=== PATIENT | male | born 1975 | race African-American/Black ===

== ENCOUNTER 2021-09-30 09:30 | Inpatient (IN) | payer OTHER, SELFPAY ==
[~2021-09-30] VITALS: Ht 198.1 cm; Wt 136.5 kg
[2021-09-30 09:35] VITALS: BP 225/137
--- NOTE | 2021-09-30 09:44 | NUR ---
PT AMBULATED TO BED, STEADY GAIT
--- NOTE | 2021-09-30 09:59 | NUR ---
45 Y/O M BIB SPOUSE FROM HOME, C/O PT STATES AFTER TESTING POSITIVE FOR COVID, HIS BRONCHITIS WORSNED. COUGHING INCREASED THIS WEEK, SOB, CP, WORSENED WITH LAYING DOWN AND WHEEZING. PMH: HTN, BRONCHITIS ALLERGY: NKA MED: DENIES
--- NOTE | 2021-09-30 10:44 | NUR ---
XRAY AT BEDSIDE
--- NOTE | 2021-09-30 11:05 | NUR ---
LAB AT BEDSIDE
[2021-09-30 11:22] LABS: BASOPHILS # (AUTO) 0.1 K/uL (0.00-0.22); BASOPHILS % (AUTO) 1.5 % (0.0-2.0); EOSINOPHILS # (AUTO) 0.1 K/uL (0-0.4); EOSINOPHILS % (AUTO) 2.4 % (0.0-4.0); HEMATOCRIT 39.2 % (36-52); HEMOGLOBIN 12.3 g/dL (12.0-18.0); LYMPHOCYTES # (AUTO) 1.6 K/uL (2.0-11.5); LYMPHOCYTES % (AUTO) 36.7 % (20.5-51.1); MEAN CORPUSCULAR HEMOGLOBIN 22 pg (27-31); MEAN CORPUSCULAR HGB CONC 31 g/dL (33-37); MEAN CORPUSCULAR VOLUME 69.4 fL (80-94); MONOCYTES # (AUTO) 0.4 K/uL (0.8-1.0); MONOCYTES % (AUTO) 9.3 % (1.7-9.3); NEUTROPHILS # (AUTO) 2.2 K/uL (1.8-7.7); NEUTROPHILS % (AUTO) 50.1 % (42.2-75.2); PLATELET COUNT (AUTO) 265 K/uL (140-450); RED BLOOD CELL COUNT(AUTO) 5.65 MIL/uL (4.20-6.10); RED CELL DISTRIBUTION WIDTH 20.3 % (11.6-13.7); WHITE BLOOD COUNT (AUTO) 4.4 K/uL (4.8-10.8)
[2021-09-30 11:32] LABS: ANION GAP 14.5 (8-16); CARBON DIOXIDE 25.3 mmol/L (21-32); CREATININE 1.4 mg/dL (0.6-1.3); POTASSIUM 3.8 mmol/L (3.5-5.1)
--- NOTE | 2021-09-30 12:52 | NUR ---
DR LYNN AT BEDSIDE SPEAKING WITH PATIENT
[2021-09-30] MEDS ORDERED: ASPIRIN 325 MG TAB PO ONE (13:05)
--- NOTE | 2021-09-30 13:18 | NUR ---
ULTRASOUND AT BEDSIDE
--- NOTE | 2021-09-30 13:51 | NUR ---
ESTABLISHED LEFT FOREARM IV 20G, INTACT, PATENT, GOOD BLOOD RETURN.
--- NOTE | 2021-09-30 14:04 | NUR ---
GLENNY KIDD, FOR CRITICAL LAB
--- NOTE | 2021-09-30 14:32 | NUR ---
PAGED DR WALSH ORDERS FOR HEPARIN DRIP, TOXICOLOGY SCREEN, 80 MG ATORVASTATIN.
[2021-09-30] MEDS ORDERED: HEPARIN PER PHARMACY MC PRN (14:40)
[2021-09-30 14:56] LABS: PROTHROMBIN TIME 10.4 secs (10.8-13.4)
[2021-09-30] MEDS ORDERED: hydrALAZINE 20 MG/ML VIAL IVP PRN (15:05)
[2021-09-30] MEDS ORDERED: hePARIN / DEXT 5% PREMIX 250 ML IV SCH (15:20)
[2021-09-30 15:22] LABS: BARBITURATE, URINE NEGATIVE ng/ml (NEG <=200); BENZODIAZEPINE, URINE NEGATIVE ng/mL (NEG <=200); CANNABINOID, URINE NEGATIVE ng/mL (NEG <=50); COCAINE, URINE NEGATIVE ng/mL (NEG <=300); OPIATE, URINE NEGATIVE ng/mL (NEG <=2000); PHENCYCLIDINE SCREEN,URINE NEGATIVE ng/mL (NEG <=25)
--- NOTE | 2021-09-30 15:30 | NUR ---
PT TAKEN TO CT SCAN VIA W/C
--- NOTE | 2021-09-30 15:40 | NUR ---
PT RETURNED FROM CT
--- NOTE | 2021-09-30 15:58 | NUR ---
LAB AT BEDSIDE
[2021-09-30] MEDS ORDERED: LORazepam 2 MG/ML VIAL IM/IVP PRN (16:05)
[2021-09-30] MEDS ORDERED: HYDROcodone/APAP 5/325 MG 1 TAB TAB PO PRN (16:05)
[2021-09-30] MEDS ORDERED: ZOLPIDEM 5 MG TAB PO PRN (16:05)
[2021-09-30] MEDS ORDERED: MORPHINE SULFATE 2 MG/ML SYR IVP PRN (16:05)
[2021-09-30] MEDS ORDERED: MAG SULF 2000 MG/WATER PREMIX 50 ML IV PRN (16:05)
[2021-09-30] MEDS ORDERED: SODIUM PHOS / POTASSIUM PHOS 1 PKT PDR PO PRN (16:05)
[2021-09-30] MEDS ORDERED: ONDANSETRON 4 MG/2 ML VIAL IVP PRN (16:05)
[2021-09-30] MEDS: NACL 0.9% 1,000 ML IV SCH ×2 (16:05→23:01)
[2021-09-30] MEDS ORDERED: POTASSIUM CHLORIDE 10 MEQ TABER PO PRN (16:05)
[2021-09-30] MEDS ORDERED: DOCUSATE SODIUM 100 MG GELCAP PO PRN (16:05)
[2021-09-30] MEDS ORDERED: CLONIDINE HYDROCHLORIDE 0.1 MG TAB PO SCH (16:25)
--- NOTE | 2021-09-30 16:40 | NUR ---
Patient will be admitted to care of DR KIDD. Admited to TELEMETRY. Will go to room 110 B. Belongings list completed. Report to CESAR VANESSA.
[2021-09-30 16:57] VITALS: BP 199/133
--- NOTE | 2021-09-30 16:57 | NUR ---
PT BROUGHT IN BY ARELY FROM THE ED, PT AMBULATED TO BED WITH A STEADY GAIT. PT IS ON ROOM AIR WITH CHEST RISING AND FALLING EVEN AND UNLABORED, TACHYPNEA IS NOTED. FAINT WHEEZES HEARD. PT DENIES SOB AT THE TIME. PT DENIES CHEST PAIN. PT IS ON A HEP DRIP AT 1000 UNITS ON A LEFT FOREARM 20 G. TROPONIN IS CURRENTLY PENDING. PT IS ON TELE MONITOR SHOWING ST. SKIN INTACT. VITAL SIGNS TAKEN, WITH NOTIFY POLYMERIZATION OVEN OPERATOR OF INCREASED BP. PT EDUCATION PROVIDED REGARDING HOSPITAL SETTING, PLAN OF CARE, AND SAFETY MEASURES. MRSA SWAB OBTAINED. CALL LIGHT WITHIN REACH. WILL CONTINUE TO MONITOR.
[2021-09-30] MEDS ORDERED: NITROGLYCERIN 0.4 MG TAB SL ONE (17:20)
[2021-09-30 17:25] LABS: CHOL/HDL RATIO 3.4 (1-4.5); FREE T4 (FREE THYROXINE) 1.08 ng/dL (0.76-1.46); PHOSPHORUS 3.6 mg/dL (2.5-4.9); THYROID STIMULATING HORMONE 1.91 uIU/mL (0.34-3.74)
--- NOTE | 2021-09-30 17:34 | NUR ---
OBTAINED NEW ONE TIME ORDER TORB FROM AUTOMOBILE RADIATOR MECHANIC FOR BP. WILL PLACE ORDER PER .
--- NOTE | 2021-09-30 17:43 | NUR ---
MARY MEDICATION ADMINISTERED PER MD ORDER. PT EDUCATION PROVIDED AND PT TOLERATED. PT PROVIDED WITH SANDWICH AND WATER PER REQUEST. ALL SAFETY MEASURES IN PLACE, CALL LIGHT WITHIN REACH. WILL CONTINUE TO MONITOR.
[2021-09-30 17:59] LABS: APPEARANCE,URINE CLEAR (CLEAR); BILIRUBIN,URINE NEGATIVE (NEGATIVE); BLOOD, URINE NEGATIVE (NEGATIVE); COLOR,URINE YELLOW (YELLOW); LEUKOCYTE ESTERASE ,URINE NEGATIVE (NEGATIVE); NITRITE, URINE NEGATIVE (NEGATIVE); UGLUCOSE NEGATIVE (NEGATIVE)
--- NOTE | 2021-09-30 18:21 | NUR ---
REASSESS BLOOD PRESSURE AFTER NITROGLYCERIN; 164/104
--- NOTE | 2021-09-30 18:57 | NUR ---
PTT NEEDS TO BE RETAKEN AT 2230 PER HOSPITAL POLICY. ORDER HAS BEEN PLACED.
--- NOTE | 2021-09-30 19:02 | NUR ---
PT IN STABLE CONDITION, ALL NEEDS HAD BEEN MET THROUGHOUT THE SHIFT. PT WILL BE ENDORSED [facility] SHIFT NURSE FOR CONTINUITY OF CARE.
[2021-09-30 19:46] VITALS: BP 170/109
[2021-09-30] MEDS: amLODIPine 5 MG TAB PO SCH (19:51)
--- NOTE | 2021-09-30 20:20 | NUR ---
Assumed care. A/O x 4. In no acute distress. Denies any pain. Received on a Heparin drip, but is has been discontinued by Dr. Ramirez. BP remains elevated. Amlodipine has been administered as ordered by . After disconnection from the Heparin drip he has walked to the . Will continue to monitor.
[2021-09-30 23:24] VITALS: BP 170/119
[2021-09-30] MEDS: hydrALAZINE 20 MG/ML VIAL IVP PRN (23:29)
[2021-10-01] MEDS: HYDROcodone/APAP 5/325 MG 1 TAB TAB PO PRN ×2 (00:24→05:28)
--- NOTE | 2021-10-01 00:43 | NUR ---
BP remains high at 2329 Hydralazine 10mg IV push given /2 BP = 170/119. Upon reassessment BP has improved BP = 156/107. It still needs some work done. Will check again at 4am. He did compalin of a headache of 5. [place] 5/325 has been administered. Estrella reassess in an hour. Will continue to monitor.
[2021-10-01 04:00] VITALS: BP 163/113
[2021-10-01] MEDS: hydrALAZINE 20 MG/ML VIAL IVP PRN ×2 (04:06→17:01)
--- NOTE | 2021-10-01 04:11 | NUR ---
The BP is once again elevated 163/113 with HR of 91. Hydralazine 10mg IV push has been administered. We shall reassess in an hour's time per e-mar remainder. Denies any pain at this time, and he is in no acute distress.
--- NOTE | 2021-10-01 05:33 | NUR ---
BP remains elevated. Dr. Ramirez contacted. Received new orders. Lopressor 5mg IV push x 1. Decrease IV fluids to 10ml/hr. Will continue to monitor.
[2021-10-01] MEDS: NACL 0.9% 1,000 ML IV SCH (05:45)
[2021-10-01] MEDS ORDERED: METOPROLOL 5 MG/5 ML VIAL IV ONE (06:00)
--- NOTE | 2021-10-01 07:25 | NUR ---
RECEIVED PT FROM NIGHT RN, PT IS AWAKE AND ALERT AND ORIENTED, IV LINE NOTED ON THE LFA G. 20 WITH NS INFUSING AT 10ML/HR, PT IS ON ROOM AIR, SAFETY PRECAUTION ENFORCED, PT C/O HEADACHE AND WILL BE MEDICATED, NO SIGN OF DISTRESS NOTED AND WILL CONTINUE TO MONITOR PT.
[2021-10-01 07:57] LABS: BASOPHILS % (AUTO) 0.7 % (0.0-2.0); EOSINOPHILS # (AUTO) 0.1 K/uL (0-0.4); EOSINOPHILS % (AUTO) 1.9 % (0.0-4.0); HEMATOCRIT 40.4 % (36-52); HEMOGLOBIN 12.7 g/dL (12.0-18.0); LYMPHOCYTES # (AUTO) 0.9 K/uL (2.0-11.5); LYMPHOCYTES % (AUTO) 21.5 % (20.5-51.1); MEAN CORPUSCULAR HEMOGLOBIN 22 pg (27-31); MEAN CORPUSCULAR HGB CONC 31 g/dL (33-37); MEAN CORPUSCULAR VOLUME 69.4 fL (80-94); MONOCYTES # (AUTO) 0.5 K/uL (0.8-1.0); MONOCYTES % (AUTO) 10.7 % (1.7-9.3); NEUTROPHILS # (AUTO) 2.8 K/uL (1.8-7.7); NEUTROPHILS % (AUTO) 65.2 % (42.2-75.2); PLATELET COUNT (AUTO) 295 K/uL (140-450); RED BLOOD CELL COUNT(AUTO) 5.83 MIL/uL (4.20-6.10); WHITE BLOOD COUNT (AUTO) 4.4 K/uL (4.8-10.8)
[2021-10-01 08:00] VITALS: BP 149/106
[2021-10-01 08:13] LABS: ALBUMIN 3.9 g/dL (3.4-5.0); ANION GAP 15.9 (8-16); CARBON DIOXIDE 23.6 mmol/L (21-32); CREATININE 1.1 mg/dL (0.6-1.3); MAGNESIUM 2.2 mg/dL (1.8-2.4); POTASSIUM 3.5 mmol/L (3.5-5.1); TOTAL BILIRUBIN 1.2 mg/dL (0.0-1.0)
[2021-10-01] MEDS: ATORVASTATIN 80 MG TAB PO SCH (09:04)
[2021-10-01] MEDS: amLODIPine 5 MG TAB PO SCH (09:04)
--- NOTE | 2021-10-01 09:04 | NUR ---
PT WAS GIVEN THE SCHEDULED AM MEDICATIONS NOW,TOLERATED AND WILL CONTINUE TO MONITOR PT
[2021-10-01] MEDS: ACETAMINOPHEN 325 MG TAB PO PRN ×2 (09:10→18:27)
[2021-10-01 12:00] VITALS: BP 155/102
--- NOTE | 2021-10-01 12:30 | NUR ---
PT IS HAVING HIS LUNCH NOW.
--- NOTE | 2021-10-01 15:15 | NUR ---
PT IS RESTING, ON BEDSIDE.
[2021-10-01 16:00] VITALS: BP 164/109
--- NOTE | 2021-10-01 19:15 | NUR ---
ENDORSED PT TO NIGHT RN FOR CONTINUITY OF CARE. ON BEDSIDE, PT IS NPO PENDING CT ANGIO CHEST WITH CONTRAST.
[2021-10-01 20:00] VITALS: BP 160/101
--- NOTE | 2021-10-01 21:24 | NUR ---
Assumed care. A/O x 4. He was sitting on his bed at the time. Spouse is at the bed side. He did ambulate the unit length several times. CTA pending. He did sign a consent, but it was the wrong one. We have had a new consent signed. At this time, Patricia the build technician cannot do the CTA without MD signature. Dr. Ramirez has been notified. Pt is going to go ahead and have his dinner. He will be NPO after midnight. He can also have food form home per Dr. Ramirez. Will continue to monitor.
[2021-10-02] VITALS: BP 142/94
[2021-10-02 05:01] VITALS: BP 147/99
[2021-10-02] MEDS: NACL 0.9% 1,000 ML IV SCH (05:11)
--- NOTE | 2021-10-02 06:23 | NUR ---
He remains a/o x 4. Denies pain, and in no acute distress. SBP has remained in the 140s. DBP has remained in the 90s. Much better than before. He was moved to room 111 B at the beginning of the shift. NPO, and he will be having a CTA done this AM. Arrangements for MRI shall be made today. Will endorse care to AM RN
[2021-10-02 06:37] LABS: BASOPHILS % (AUTO) 0.7 % (0.0-2.0); EOSINOPHILS # (AUTO) 0.2 K/uL (0-0.4); HEMOGLOBIN 12.5 g/dL (12.0-18.0); LYMPHOCYTES # (AUTO) 1.3 K/uL (2.0-11.5); LYMPHOCYTES % (AUTO) 29.4 % (20.5-51.1); MEAN CORPUSCULAR HEMOGLOBIN 22 pg (27-31); MEAN CORPUSCULAR HGB CONC 31 g/dL (33-37); MEAN CORPUSCULAR VOLUME 69.2 fL (80-94); MONOCYTES # (AUTO) 0.6 K/uL (0.8-1.0); MONOCYTES % (AUTO) 12.9 % (1.7-9.3); NEUTROPHILS # (AUTO) 2.2 K/uL (1.8-7.7); PLATELET COUNT (AUTO) 286 K/uL (140-450); RED BLOOD CELL COUNT(AUTO) 5.77 MIL/uL (4.20-6.10); RED CELL DISTRIBUTION WIDTH 20.2 % (11.6-13.7); WHITE BLOOD COUNT (AUTO) 4.3 K/uL (4.8-10.8)
[2021-10-02 06:44] LABS: ALBUMIN 3.6 g/dL (3.4-5.0); ANION GAP 14.1 (8-16); CARBON DIOXIDE 25.9 mmol/L (21-32); CREATININE 1.4 mg/dL (0.6-1.3); MAGNESIUM 2.4 mg/dL (1.8-2.4); TOTAL BILIRUBIN 0.8 mg/dL (0.0-1.0)
--- NOTE | 2021-10-02 07:20 | NUR ---
RECEIVED BEDSIDE REPORT FROM INSURANCE ACCOUNT REPRESENTATIVE NURSE FOR CONTINUITY OF CARE. PT IS AWAKE AND ALERT. A&OX4. ON RA WITH BREATHING UNLABORED. SR ON TELE MONITOR. AMBULATORY INDEPENDENTLY. SKIN IS WARM, DRY, AND INTACT. IV IS IN THE LEFT FOREARM 20 GAUGE RUNNING FLUIDS TKO. PT IS STABLE. PLAN OF CARE DISCUSSED.
[2021-10-02 08:00] VITALS: BP_SYST 132; BP_SYST 146; BP_DIAS 109; BP_DIAS 70
--- NOTE | 2021-10-02 08:19 | NUR ---
PATIENT HAS BEEN SCREENED AND CATEGORIZED MODERATE NUTRITION RISK. PATIENT WILL BE SEEN WITHIN 3-5 DAYS OF ADMISSION. 10/02/21 10/05/[address]
[2021-10-02] MEDS ORDERED: lisinopriL 10 MG TAB PO SCH (09:00)
[2021-10-02] MEDS: ATORVASTATIN 80 MG TAB PO SCH (09:23)
[2021-10-02] MEDS: amLODIPine 5 MG TAB PO SCH (09:24)
[2021-10-02] MEDS: CYANOCOBALAMIN 100 MCG TAB PO SCH (09:24)
--- NOTE | 2021-10-02 09:30 | NUR ---
PT FILLED OUT MRI QUESTIONNAIRE AND SIGNED PAPERWORK. CALLED CT SCAN AND THEY STATED THEY WILL ADDRESSER PT AT 1130 AM TO COMPLETE EXAM.
--- NOTE | 2021-10-02 10:35 | NUR ---
RECHECKED PT BP AND IT WAS AT 146/83. SAFETY MEASURES IN PLACE AND CALL LIGHT WITHIN REACH. PT TIANA CALLED AND ASKED FOR AN UPDATE ON VITAL SIGNS AND PROVIDED BLOOD PRESSURE REINFORCEMENT TEACHING. WILL CONTINUE TO MONITOR PT BLOOD PRESSURE. Addendum: 10/02/21 at 2316 by Jeniffer Cardoso RN WRONG TIME [id number]
--- NOTE | 2021-10-02 11:30 | NUR ---
PT WAS TAKEN TO CT SCAN VIA WHEELCHAIR. IV IS PATENT AND FLUSHING WELL. WILL WAIT FOR PT TO RETURN.
[2021-10-02 12:00] VITALS: BP 160/115
--- NOTE | 2021-10-02 12:00 | NUR ---
PT RETURNED FROM CT SCAN ANGIO CHEST. NO DISTRESS NOTED. NO ADVERSE REACTIONS NOTED. PT IS STABLE.
[2021-10-02] MEDS: hydrALAZINE 20 MG/ML VIAL IVP PRN (12:32)
--- NOTE | 2021-10-02 12:32 | NUR ---
PT'S BP IS 161/117 AND HR 91. PT WAS GIVEN HYDRALAZINE ORDERED PRN IVP. WILL REASSESS BP SHORTLY. PT DENIES CHEST PAIN OR HEADACHE. WILL CONTINUE TO MONITOR.
--- NOTE | 2021-10-02 14:30 | NUR ---
PT WAS GIVEN JUICE AND A SNACK REQUESTED. PT DENIES PAIN AT THIS TIME. NO HEADACHE OR CHEST PAIN. IV IS INTACT AND INFUSING FLUID TKO. WILL CONTINUE TO MONITOR PT.
--- NOTE | 2021-10-02 14:44 | NUR ---
DC PLANNING PATIENT HAS AN ORDER FOR MRI AND POSSIBLE CARDIAC CATH. CALLED [phone] UNABLE TO REACH CM TRANSFERRED ME TO DIFFERENT DEPT. CALLED [facility] SPOKE WITH JONATHAN AND SCHEDULED THE MRI ON 10/03/21 AT 1 PM. STILL AWAITING FOR THE AUTH. CM TO FOLLOW Addendum: 10/02/21 at 1532 by Chandrika Hollis RN DC PLANNING: CALLED [employer] SPOKE WITH GALVAN REF [id number] STATED THEY ARE NOT HANDLING THE TRANSFER THEY ARE HANDLING ONLY THE WORKERS CAMP TO SUSAN THE MAIN ACI NUMBER AND PROVIDED THE ACI NUMBER [id number]. CM TO FOLLOW Addendum: 10/02/21 at 1606 by Chandrika Hollis RN DC PLANNING: SPOKE WITH PATIENT'S TIANA PROVIDED THE INSURANCE NUMBER [phone] CALLED THE INSURANCE SPOKE WITH BRAYAN EXPLAINED THAT PT NEEDS MRI AND POSSIBLE CARDIAC CATH. SHE STATED PATIENT HAS A LIMITED COVERAGE , PT WILL GET 5-50% DISCOUNTED RATE, NO PRIOR AUTH NEEDED AND [facility] IS IN THE NET WORK. CM TO FOLLOW Addendum: 10/03/21 at 0924 by Chandrika Hollis RN DC PLANNING: [facility] WILL DIRECTOR OF CURRICULUM AND INSTRUCTION PATIENT AT 12:PM GOING TO [facility] MRI DEPT . ARRANGE TRANSPORT WAIT AND RETURN. NOTIFIED AUREA VANESSA. CM TO FOLLOW
[2021-10-02 16:00] VITALS: BP 121/78
--- NOTE | 2021-10-02 16:07 | NUR ---
ROUNDED ON PT. HE IS AWAKE, SITTING UP IN BED. NO DISTRESS NOTED. PT IS ANSWERING QUESTIONS APPROPRIATELY. PT IS STABLE.
--- NOTE | 2021-10-02 16:12 | NUR ---
SPOKE TO FUAD, PERSONAL PROPERTY APPRAISER, AND SHE STATED THAT THE PT WILL HAVE MRI TOMORROW AT 1 PM AT [facility]. TRANSPORT TO BE ARRANGED. POSSIBLE CARDIAC CATH PENDING.
--- NOTE | 2021-10-02 19:25 | NUR ---
ENDORSED PT TO MANAGER OF CASE NURSE FOR CONTINUITY OF CARE. PT IS STABLE. PLAN OF CARE DISCUSSED.
--- NOTE | 2021-10-02 19:39 | NUR ---
RECEIVED REPORT FROM AM NURSE FOR CONTINUITY OF CARE. PATIENT IS STABLE.
[2021-10-02 20:00] VITALS: BP 159/92
--- NOTE | 2021-10-02 20:25 | NUR ---
PT LAYING IN BED WATCHING MOVIES ON PHONE. PT BREATHING ON RA. A&OX4. PT SKIN INTACT. IV LOCATED ON LEFT FOREARM 20G RUNNING NS AT 10ML/HR. DENIES PAIN. PT VITAL SIGNS FOLLOW BP:159/92, HR: 88, RR:18, O2:97. WILL RECHECK PT BLOOD PRESSURE IN AN HOUR.
--- NOTE | 2021-10-02 20:30 | NUR ---
PT AMBULATED TO BATHROOM AND BACK WITH STANDBY ASSIST. PT ON 2/L NA. PT COMPLAINING SOB, O2 AT 94. INCREASED OXYGEN TO 3/L AND RAISED HOB. PT HAS A RIGHT UPPER PICC LINE RUNNING LR AT 125ML/HR. PT SKIN IS INTACT. PT VITAL SIGNS FOLLOW BP:106/66, HR: 96, RR:18, TEMP: 98, O2:97. PT COMPLAINS OF PAIN AND RATES IT 5/10. EXPLAINED PT HIS MEDICATION AND VERBALIZED UNDERSTANDING. ADMINISTERED SEROQUEL AND NORCO ORDERED. SPOKE DR. DONOVAN PROFESSOR OF FOREST PLANNING FOR REGARDING PT HEPARIN ORDER. EXPLAIN PT PLT IS 79 AND HAD A BILIARY STENT DONE TODAY. SAID TO HOLD HEPARIN AND ORDER SCD. WILL CARRY OUT ORDER. Addendum: 10/02/21 at 2309 by Jeniffer Cardoso RN WRONG CHART/PATIENT.
--- NOTE | 2021-10-02 22:35 | NUR ---
RECHECKED PT BP AND IT WAS AT 146/83. SAFETY MEASURES IN PLACE AND CALL LIGHT WITHIN REACH. PT TIANA CALLED AND ASKED FOR AN UPDATE ON VITAL SIGNS AND PROVIDED BLOOD PRESSURE REINFORCEMENT TEACHING. WILL CONTINUE TO MONITOR PT BLOOD PRESSURE.
--- NOTE | 2021-10-02 22:57 | NUR ---
PT IN BED SLEEPING. SHOWS NO SIGNS OF DISTRESS. MANN CATHETER DRAINING. CALL LIGHT WITHIN REACH AND SAFETY MEASURES IN PLACE. WILL CONTINUE TO MONITOR. Addendum: 10/02/21 at 2309 by Jeniffer Cardoso RN WRONG PT/CHART.
[2021-10-03] VITALS: BP 156/97
--- NOTE | 2021-10-03 00:41 | NUR ---
PT IN BED SLEEPING. WOKE PT FOR V/S. DENIES OF PAIN. CALL LIGHT WITHIN REACH. WILL CONTINUE TO MONITOR.
--- NOTE | 2021-10-03 02:10 | NUR ---
PT IN BED SLEEPING. SHOWS NO SIGNS OF DISTRESS. SAFETY MEASURES IN PLACE AND CALL LIGHT WITHIN REACH. WILL CONTINUE TO MONITOR.
[2021-10-03 04:00] VITALS: BP 147/91
--- NOTE | 2021-10-03 05:10 | NUR ---
PT IN BED SLEEPING. DENIES OF PAIN. SHOWS NO SIGNS OF DISTRESS. CALL LIGHT WITHIN REACH. WILL CONTINUE TO MONITOR.
[2021-10-03] MEDS: NACL 0.9% 1,000 ML IV SCH (06:28)
[2021-10-03 07:15] LABS: BASOPHILS % (AUTO) 0.6 % (0.0-2.0); EOSINOPHILS # (AUTO) 0.2 K/uL (0-0.4); EOSINOPHILS % (AUTO) 5.3 % (0.0-4.0); HEMATOCRIT 41.1 % (36-52); HEMOGLOBIN 12.9 g/dL (12.0-18.0); LYMPHOCYTES # (AUTO) 1.5 K/uL (2.0-11.5); LYMPHOCYTES % (AUTO) 37.7 % (20.5-51.1); MEAN CORPUSCULAR HEMOGLOBIN 22 pg (27-31); MEAN CORPUSCULAR HGB CONC 32 g/dL (33-37); MEAN CORPUSCULAR VOLUME 69.9 fL (80-94); MONOCYTES # (AUTO) 0.5 K/uL (0.8-1.0); MONOCYTES % (AUTO) 12.1 % (1.7-9.3); NEUTROPHILS # (AUTO) 1.8 K/uL (1.8-7.7); NEUTROPHILS % (AUTO) 44.3 % (42.2-75.2); PLATELET COUNT (AUTO) 283 K/uL (140-450); RED BLOOD CELL COUNT(AUTO) 5.88 MIL/uL (4.20-6.10); RED CELL DISTRIBUTION WIDTH 20.3 % (11.6-13.7)
[2021-10-03 07:16] LABS: ALBUMIN 3.6 g/dL (3.4-5.0); ANION GAP 14.9 (8-16); CARBON DIOXIDE 24.8 mmol/L (21-32); CREATININE 1.4 mg/dL (0.6-1.3); MAGNESIUM 2.3 mg/dL (1.8-2.4); POTASSIUM 4.7 mmol/L (3.5-5.1); TOTAL BILIRUBIN 0.8 mg/dL (0.0-1.0)
--- NOTE | 2021-10-03 07:20 | NUR ---
RECEIVED BEDSIDE REPORT FROM PRIVATE BANKER NURSE FOR CONTINUITY OF CARE. PT IS AWAKE AND ALERT. A&OX4. ON RA WITH BREATHING UNLABORED. AMBULATORY INDEPENDENTLY. SKIN IS WARM, DRY, AND INTACT. IV IS IN THE LEFT FOREARM 20 GAUGE NS AT 10 ML PER HOUR PER ORDER. PT IS STABLE. DENIES PAIN. PLAN OF CARE DISCUSSED.
[2021-10-03 08:00] VITALS: BP 151/109
[2021-10-03] MEDS: METOPROLOL 25 MG TAB PO SCH ×2 (08:42→21:24)
[2021-10-03] MEDS: CYANOCOBALAMIN 100 MCG TAB PO SCH (08:42)
[2021-10-03] MEDS: ATORVASTATIN 80 MG TAB PO SCH (08:42)
[2021-10-03] MEDS: amLODIPine 5 MG TAB PO SCH (08:42)
[2021-10-03] MEDS: ASPIRIN 81 MG TAB.CHEW PO SCH (08:43)
--- NOTE | 2021-10-03 09:00 | NUR ---
INFORMED PT THAT THE TRANSPORT WILL ARRIVE AT 1300 PM FOR THE MRI OF THE HEAD. PT DENIES BEING CLAUSTROPHOBIC. QUESTIONNAIRE WAS FILLED OUT YESTERDAY AND FAXED TO [facility].
--- NOTE | 2021-10-03 09:30 | NUR ---
PT IS AWAKE AND ALERT. PT DENIES CHEST PAIN. BREATHING IS UNLABORED. NO SOB NOTED. IV IS PATENT AND INTACT. WILL CONTINUE TO MONITOR.
--- NOTE | 2021-10-03 11:45 | NUR ---
SPOKE TO DAISY FROM [facility] RADIOLOGY DEPARTMENT AND SHE STATED THAT THE PT DOES NOT NEED A CONSENT TO BE SENT WITH HIM. SHE SAID HE JUST NEEDS THE QUESTIONNAIRE FILLED OUT WHICH WAS ALREADY SENT VIA [employer]DRA[employer], FUAD.
[2021-10-03] MEDS: SPIRONOLACTONE 25 MG TAB PO SCH (11:54)
[2021-10-03 12:00] VITALS: BP 146/110
--- NOTE | 2021-10-03 12:00 | NUR ---
PT IS AMBULATING IN THE HALLS. NO DISTRESS AT THIS TIME. GAIT IS STEADY. IV FLUIDS ARE INFUSING ORDERED. PT IS USING POLE TO STABILIZE SELF. IS WALKING WITH PATIENT.
--- NOTE | 2021-10-03 12:28 | NUR ---
CALLED FUAD, MENTAL HYGIENE CONSULTANT TO INQUIRE ABOUT [facility] PICKUP FOR PT. PICKUP WAS SET UP FOR 12 PM BUT THE TRANSPORT IS STILL NOT HERE. LEFT VOICEMAIL FOR FUAD TO CALL BACK.
--- NOTE | 2021-10-03 12:29 | NUR ---
CALLED [facility] TO INQUIRE ABOUT PICKUP FOR PT THE SCHEDULED TIME WAS SUPPOSED TO BE FOR 12 PM. THEY STATED THAT THEY HAVE A TRANSPORT ON ROUTE TO ARRIVE IN THIRTY MIN. THEY STATED THEY WILL CALL [facility] AND TELL THEM THAT THEY WILL BE THIRTY MIN LATE AND CALL BACK AFTER HE SPEAKS WITH THE RADIOLOGY DEPARTMENT.
--- NOTE | 2021-10-03 12:35 | NUR ---
VICENTE, [facility], CALLED BACK. HE STATED THAT HE SPOKE WITH MICHEAL FROM RADIOLOGY DEPARTMENT AND STATED THAT HE WILL LET THE TECH KNOW AND IT WONT BE A PROBLEM. SPOKE TO FUAD, AUTOMOTIVE QUALITY MANAGER, AND INFORMED HER OF THE SITUATION AND SHE SAID SHE WILL CALL THE RADIOLOGY DEPARTMENT.
--- NOTE | 2021-10-03 13:21 | NUR ---
PT WAS PICKED UP BY [facility] TO BE TAKEN TO [facility] FOR MRI OF THE HEAD. PT IS STABLE. TALKING AND SPEAKING APPROPRIATELY. AMBULATED TO [facility]. VS ARE STABLE. BREATHING IS UNLABORED. WILL WAIT FOR PT TO ARRIVE BACK TO OUR HOSPITAL.
--- NOTE | 2021-10-03 15:56 | NUR ---
RECEIVED A CALL FROM [facility] RADIOLOGY DEPARTMENT AND THE TECH STATED THAT THE PT COULD NOT COMPLETE THE MRI BECAUSE HE WAS CLAUSTROPHOBIC. INFORMED DR. ONEIL ABOUT THIS INFORMATION.
[2021-10-03 16:00] VITALS: BP 158/111
--- NOTE | 2021-10-03 16:20 | NUR ---
PT ARRIVED BACK TO HOSPITAL VIA GURNEY BY [facility]. VS WERE TAKEN AND BP WAS ELEVATED. PT APPEARS TO BE ANXIOUS WILL RECHECK WHEN PT IS RELAXING AND CALM. PT IS STABLE AND SPEAKING APPROPRIATELY.
--- NOTE | 2021-10-03 17:15 | NUR ---
RECHECKED BP NOW THAT PT IS RESTED AND MORE CALM AFTER RETURNING FROM MRI AT [facility]. PT'S BP IS 155/115. PT STATED HE DOES NOT WANT TO TAKE THE HYDRALAZINE PRN BECAUSE IT GIVES HIM A HEADACHE. WILL REPORT THIS TO DR. ONEIL.
--- NOTE | 2021-10-03 17:30 | NUR ---
INFORMED DR. ONEIL THAT THE PT'S BP IS ELEVATED AND HE DOES NOT WANT HYDRALAZINE. DR. ONEIL RESPONDED BACK TO CHANGE THE AMLODIPINE DOSE TO 10 MG DAILY AND GIVE A ONE TIME DOSE OF AMLODIPINE 5 MG NOW.
[2021-10-03] MEDS ORDERED: amLODIPine 5 MG TAB PO SCH (18:00)
--- NOTE | 2021-10-03 18:46 | NUR ---
RECHECKED BP AFTER GIVING AMLODIPINE ORDERED BY DR. ONEIL. PT'S BP IS 158/117. BP IS STILL ELEVATED AND NOTIFIED DR. ONEIL. HE STATED TO MONITOR PT.
--- NOTE | 2021-10-03 19:15 | NUR ---
ENDORSED PT TO SUPERVISOR EXTRUDING DEPARTMENT NURSE FOR CONTINUITY OF CARE. PT IS STABLE AT THIS TIME. PLAN OF CARE DISCUSSED.
--- NOTE | 2021-10-03 19:16 | NUR ---
RECD. RESTING IN BED, AWAKE, A/OX4. RESPIRATION EVEN AND UNLABORED. LUNGS CLEAR ON BILATERAL AUSCULTATION. WITH OCCASIONAL UNPRODUCTIVE COUGHING. IV OF NS INFUSING AT 10 ML/HR, LEFT FOREARM G20. INDEPENDENT, ABLE TO AMBULATE BY HIMSELF. NO EDEMA NOTED ON BILATERAL LOWER EXTREMITIES. MEDICATIONS FOR THE NIGHT DISCUSSED WITH PATIENT. VERBALIZED UNDERSTANDING. DENIES PAIN 0/10.
[2021-10-03 20:00] VITALS: BP 147/93
--- NOTE | 2021-10-03 21:24 | NUR ---
RESTING IN BED, WATCHING TV. SCHEDULED MEDICATIONS ADMINISTERED. TEACHING GIVEN ON THE IMPORTANCE OF DIET AND EXERCISE FOR THE CONTROL OF HIGH BLOOD PRESSURE WITH EMPHASIS ON WHAT FOODS TO AVOID AND HEALTHY FOODS TO TAKE. VERBALIZED UNDERSTANDING.
--- NOTE | 2021-10-03 23:00 | NUR ---
RESTING IN BED, RESPIRATION EVEN AND UNLABORED. NO COMPLAINT OF PAIN, 0/10.
[2021-10-04] VITALS: BP 131/89
--- NOTE | 2021-10-04 01:00 | NUR ---
CHECKED PATIENT, RESTING COMFORTABLY ASLEEP ON HIS LEFT SIDE. RESPIRATION EVEN AND UNLABORED.
--- NOTE | 2021-10-04 03:00 | NUR ---
STILL SLEEPING COMFORTABLY IN BED ON HIS RIGHT SIDE. CALL LIGHT IN REACH.
[2021-10-04 04:00] VITALS: BP 145/98
--- NOTE | 2021-10-04 05:00 | NUR ---
AWAKE IN BED, NO COMPLAINT OF PAIN, 0/0. CALL LIGHT IN REACH.
[2021-10-04] MEDS: NACL 0.9% 1,000 ML IV SCH (05:35)
[2021-10-04 07:09] LABS: BASOPHILS % (AUTO) 0.7 % (0.0-2.0); EOSINOPHILS # (AUTO) 0.2 K/uL (0-0.4); EOSINOPHILS % (AUTO) 4.3 % (0.0-4.0); HEMATOCRIT 40.7 % (36-52); HEMOGLOBIN 12.9 g/dL (12.0-18.0); LYMPHOCYTES # (AUTO) 1.3 K/uL (2.0-11.5); LYMPHOCYTES % (AUTO) 32.2 % (20.5-51.1); MEAN CORPUSCULAR HEMOGLOBIN 22 pg (27-31); MEAN CORPUSCULAR HGB CONC 32 g/dL (33-37); MEAN CORPUSCULAR VOLUME 69.4 fL (80-94); MONOCYTES # (AUTO) 0.4 K/uL (0.8-1.0); MONOCYTES % (AUTO) 10.8 % (1.7-9.3); NEUTROPHILS # (AUTO) 2.1 K/uL (1.8-7.7); PLATELET COUNT (AUTO) 275 K/uL (140-450); RED BLOOD CELL COUNT(AUTO) 5.86 MIL/uL (4.20-6.10); RED CELL DISTRIBUTION WIDTH 20.2 % (11.6-13.7)
[2021-10-04 07:23] LABS: ALBUMIN 3.5 g/dL (3.4-5.0); ANION GAP 12.7 (8-16); CARBON DIOXIDE 26.7 mmol/L (21-32); CREATININE 1.2 mg/dL (0.6-1.3); MAGNESIUM 2.3 mg/dL (1.8-2.4); POTASSIUM 4.4 mmol/L (3.5-5.1); TOTAL BILIRUBIN 0.6 mg/dL (0.0-1.0)
--- NOTE | 2021-10-04 07:25 | NUR ---
CONDITION REMAIN STABLE. ENDORSED TO AM SHIFT NURSE FOR CONTINUITY OF CARE.
--- NOTE | 2021-10-04 07:26 | NUR ---
RECEIVED BEDSIDE REPORT FROM PRODUCTION CONTROL PLANNER NURSE FOR CONTINUITY OF CARE. PT IS AWAKE AND ALERT AT A&OX4. ON RA WITH BREATHING UNLABORED. IV IS IN THE LEFT FOREARM BUT HAS BEEN STOPPED DUE TO PAIN IN THE AREA. PT IS STABLE. PLAN OF CARE DISCUSSED.
[2021-10-04 08:00] VITALS: BP 151/101
[2021-10-04] MEDS: ASPIRIN 81 MG TAB.CHEW PO SCH (08:28)
[2021-10-04] MEDS: ATORVASTATIN 80 MG TAB PO SCH (08:29)
[2021-10-04] MEDS: METOPROLOL 25 MG TAB PO SCH (08:29)
[2021-10-04] MEDS: CYANOCOBALAMIN 100 MCG TAB PO SCH (08:30)
[2021-10-04] MEDS: SPIRONOLACTONE 25 MG TAB PO SCH (08:30)
[2021-10-04] MEDS ORDERED: amLODIPine 5 MG TAB PO SCH (09:00)
--- NOTE | 2021-10-04 10:00 | NUR ---
DC IV DUE TO DISLODGEMENT.
[2021-10-04] MEDS ORDERED: ASPI-1822 PO (10:14)
[2021-10-04] MEDS ORDERED: SPIR50TA PO (10:14)
[2021-10-04] MEDS ORDERED: SACU1TAB PO (10:14)
[2021-10-04] MEDS ORDERED: AMLO10TA PO (10:14)
[2021-10-04] MEDS ORDERED: METO25TA PO (10:14)
[2021-10-04] MEDS ORDERED: LIP80 PO (10:14)
--- NOTE | 2021-10-04 10:30 | NUR ---
PT DC ORDER RECEIVED. PT IS STABLE.
[2021-10-04 10:39] VITALS: BP 151/101
--- NOTE | 2021-10-04 11:30 | NUR ---
PT CALLED HIS TO PICKUP AND PT VS WNL. PT IS STABLE. SAW SW FOR INFO ON DISABILITY.
--- NOTE | 2021-10-04 12:00 | NUR ---
PT WAS DISCHARGED. ALL BELONGINGS WITH HIM. WALKED PT TO FRONT OF HOSPITAL. IS AT SIDE. PT IS STABLE. FAMILY GRATEFUL FOR CARE.
== END 2021-10-04 12:17 | disposition short-term general hospital (02) | DRG 280 ==
LOC: MED 09:30 → MTU 12:39
PROVIDERS: ADMIT Family Medicine; ATTEND Family Medicine
DX: I21.4 Non-ST elevation (NSTEMI) myocardial infarction (principal); I50.43 Acute on chronic combined systolic (congestive) and diastolic (congestive) heart failure; N17.0 Acute kidney failure with tubular necrosis; J96.01 Acute respiratory failure with hypoxia; I13.0 Hypertensive heart and chronic kidney disease with heart failure and stage 1 through stage 4 chronic kidney disease, or unspecified chronic kidney disease; I16.1 Hypertensive emergency; I42.9 Cardiomyopathy, unspecified; N18.9 Chronic kidney disease, unspecified; Z20.822 Contact with and (suspected) exposure to COVID-19; E66.9 Obesity, unspecified; G93.9 Disorder of brain, unspecified; Z86.16 Personal history of COVID-19; Z81.8 Family history of other mental and behavioral disorders; Z68.34 Body mass index [BMI] 34.0-34.9, adult
CPT/HCPCS: 36415; 70450; 71045; 71275; 80053; 80305; 81003; 82150; 83036; 83690; 83735; 83880; 84100; 84439; 84443; 84484; 85025; 85610; 85730; 87081; 93005; 93970; 96365; 96375; 96376; 99285; J0360; J1644; J3490; Q0092; Q9967